=== PATIENT | female | born 1975 | race Asian ===

== ENCOUNTER → 2017-03-22 | Outpatient (CLI) | payer BC ==
[2017-03-22 14:22] LABS: PREG INTERNAL NEGATIVE QC NEG CLEAR BACKGROUND; PREG INTERNAL POSITIVE QC POS CONTROL LINE
== END | disposition home or self-care (01) ==
LOC: C.LAB 13:14
PROVIDERS: ATTEND Physician Assistant
DX: Z30.9 Encounter for contraceptive management, unspecified (principal)